=== PATIENT | male | born 2000 | race Two or more races ===

== ENCOUNTER 2023-10-02 09:40 | Inpatient (IN) | payer MEDICAID ==
[~2023-10-02] VITALS: Ht 165.1 cm; Wt 110.5 kg
[2023-10-02] VITALS (7 sets, daily range): BP systolic 115–122; BP diastolic 60–68; PULSE 75–96; RESP 16–22; TEMP 100.3–100.6; O2SAT 92–100
[2023-10-02 10:34] LABS: Basophils # (auto) 0 10 ^3/uL (0-0.2); Basophils % (auto) 0.3 % (0.0-2.0); Eosinophils # (auto) 0 10 ^3/uL (0-0.8); Eosinophils % (auto) 0.1 % (0.0-7.0); Hematocrit 43.8 % (41.0-53.0); Hemoglobin 14.4 g/dL (13.5-17.5); Lymphocytes % (auto) 14.3 % (10.0-50.0); Mean Corpuscular Hemoglobin 28.2 pg (28.0-32.0); Mean Corpuscular Hgb Conc. 32.9 g/dL (32.0-36.0); Mean Corpuscular Volume 85.7 fL (80.0-100.0); Monocytes # (auto) 1.2 10 ^3/uL (0-1.3); Monocytes % (auto) 8.5 % (0.0-12.0); Neutrophils # (auto) 10.8 10 ^3/uL (1.6-8.6); Neutrophils % (auto) 76.8 % (37.0-80.0); Nucleated Red Blood Cells % 0.1 %; Red Blood Cells 5.11 10^6/uL (4.5-5.90); Red Cell Distribution Width 13.8 % (11.8-14.3); White Blood Cell 14.1 10^3/uL (4.4-10.8)
[2023-10-02 10:44] LABS: Chloride 106 mmol/L (98-107); Sodium 136 mmol/L (136-145)
[2023-10-02 10:45] LABS: Anion Gap 6 (5-15); Carbon Dioxide 24 mmol/L (20-30)
[2023-10-02 10:46] LABS: Calcium 9.4 mg/dL (8.5-10.1)
[2023-10-02 10:50] LABS: BUN/Creatinine Ratio 17.7 (10.0-20.0); Blood Urea Nitrogen 14 mg/dL (9-23); Glucose 97 mg/dL (74-106)
[2023-10-02 10:56] LABS: INR 1.08 (0.9-1.15); Partial Thromboplastin Time 32.6 SEC (24.5-34.5); Prothrombin Time 11.3 sec (9.3-11.8)
[2023-10-02] MEDS ORDERED: VANCOMYCIN PER PHARMACY 0 MG IV SCH (11:15)
[2023-10-02] MEDS: MORPHINE SULFATE 4 MG/ML SYR/VIAL IV ONE (11:34)
[2023-10-02] MEDS: PANTOPRAZOLE 40 MG/10 ML VIAL INJ IV ONE (11:34)
[2023-10-02] MEDS: PIPERACILLIN-TAZOB 3.375GM 100 ML IV ONE (11:34)
[2023-10-02] MEDS: ONDANSETRON HCL 4 MG/2 ML VIAL IV ONE (11:35)
[2023-10-02] MEDS: SODIUM CHLORIDE 0.9% 1,000 ML IVB ONE (11:35)
[2023-10-02] MEDS ORDERED: fentaNYL CITRATE 100 MCG/2 ML VL ONE (12:00)
[2023-10-02] MEDS ORDERED: MIDAZOLAM HCL 2MG/2ML 2ml VIAL (1mg/ml) ONE (12:00)
[2023-10-02] MEDS: LIDOCAINE W/ EPINEPHRINE 1% 20ML VIAL ONE (12:21)
[2023-10-02] MEDS: BUPIVACAINE HCL 0.25% P/F 10 ML VIAL ONE (12:21)
[2023-10-02] MEDS ORDERED: ONDANSETRON HCL 4 MG/2 ML VIAL ONE (12:50)
[2023-10-02] MEDS ORDERED: PROPOFOL 10 MG/ML 20 ML IV ONE (12:50)
[2023-10-02] MEDS ORDERED: LIDOCAINE 1% INJ PF 5ML AMP ONE (12:50)
[2023-10-02] MEDS ORDERED: ROCURONIUM 10MG/ML 10ML VIAL IV ONE (12:50)
[2023-10-02] MEDS ORDERED: NEOSTIGMINE 1 MG/ML INJ (10mg/10ML VIAL) ONE (12:55)
[2023-10-02] MEDS ORDERED: GLYCOPYRROLATE 0.2 MG/ML 1ML VIAL ONE (12:55)
[2023-10-02] MEDS ORDERED: ONDANSETRON HCL 4 MG/2 ML VIAL IV PRN (13:30)
[2023-10-02] MEDS: HYDROmorphone HCL 2 MG/ML VL/or syr IV PRN (14:29)
[2023-10-02] MEDS: ACETAMINOPHEN 325 MG TAB PO PRN (15:37)
[2023-10-02] MEDS: ceFAZolin 1GM/50ML 50 ML IV SCH (15:56)
[2023-10-02] MEDS: metroNIDAZOLE 500MG/100ML 100 ML IV SCH (15:56)
[2023-10-02] MEDS: SODIUM CHLORIDE 0.9% 1,000 ML IV SCH (16:00)
[2023-10-02] MEDS ORDERED: PIPERACILLIN-TAZOB 3.375GM 100 ML IV SCH (18:00)
[2023-10-02] MEDS: MORPHINE SULFATE INJ 2 MG/ml SYRG IV PRN (18:21)
[2023-10-02] MEDS: SUCCINYLCHOLINE CHLORIDE 20 MG/ML 10ML VIAL IV ONE (21:43)
[2023-10-02] MEDS: VANCOMYCIN 1GM/200ML 200 ML IV ONE ×2 (21:43→23:56)
[2023-10-03 05:01] VITALS: BP 109/65; PULSE 70; RESP 19; TEMP 98.1; O2SAT 100
[2023-10-03 06:04] LABS: Basophils # (auto) 0 10 ^3/uL (0-0.2); Basophils % (auto) 0.3 % (0.0-2.0); Eosinophils # (auto) 0 10 ^3/uL (0-0.8); Eosinophils % (auto) 0.1 % (0.0-7.0); Hematocrit 39.3 % (41.0-53.0); Hemoglobin 13.2 g/dL (13.5-17.5); Lymphocytes # (auto) 1.3 10 ^3/uL (0.4-5.4); Lymphocytes % (auto) 12.5 % (10.0-50.0); Mean Corpuscular Hemoglobin 28.9 pg (28.0-32.0); Mean Corpuscular Hgb Conc. 33.6 g/dL (32.0-36.0); Monocytes # (auto) 0.7 10 ^3/uL (0-1.3); Monocytes % (auto) 6.8 % (0.0-12.0); Neutrophils # (auto) 8.5 10 ^3/uL (1.6-8.6); Neutrophils % (auto) 80.3 % (37.0-80.0); Red Blood Cells 4.57 10^6/uL (4.5-5.90); Red Cell Distribution Width 13.7 % (11.8-14.3); White Blood Cell 10.5 10^3/uL (4.4-10.8)
[2023-10-03 06:24] LABS: Alanine Aminotransferase 26 U/L (7-40); Albumin 4.2 g/dL (3.2-4.8); Alkaline Phosphatase 44 U/L (46-116); Anion Gap 6 (5-15); Aspartate Aminotransferase 27 U/L (13-40); BUN/Creatinine Ratio 15.3 (10.0-20.0); Bilirubin, Total 1.5 mg/dL (0.2-1.0); Blood Urea Nitrogen 11 mg/dL (9-23); Calcium 9.1 mg/dL (8.5-10.1); Carbon Dioxide 23 mmol/L (20-30); Chloride 105 mmol/L (98-107); Glucose 102 mg/dL (74-106); Sodium 134 mmol/L (136-145); Total Protein 6.7 g/dL (5.7-8.2)
[2023-10-03 08:00] VITALS: BP 114/65; PULSE 72; RESP 16; TEMP 98.6; O2SAT 94
[2023-10-03] MEDS: PANTOPRAZOLE 40 MG/10 ML VIAL INJ IV SCH (09:52)
[2023-10-03 12:00] VITALS: BP 135/87; PULSE 99; RESP 16; TEMP 97.7; O2SAT 93
[2023-10-03 16:00] VITALS: BP 116/59; PULSE 96; RESP 16; TEMP 98.1; O2SAT 96
[2023-10-03] MEDS: VANCOMYCIN 1GM/200ML 200 ML IV SCH (16:47)
[2023-10-03 20:00] VITALS: PULSE 86; RESP 17; O2SAT 94
[2023-10-03 22:00] VITALS: BP 124/71; PULSE 86; RESP 17; TEMP 98.2; O2SAT 94
[2023-10-04] MEDS: DOCUSATE SOD 100 MG CAP PO PRN (03:57)
[2023-10-04 05:00] VITALS: BP 139/71; PULSE 80; RESP 20; TEMP 97.4; O2SAT 94
[2023-10-04 09:00] VITALS: BP 124/77; PULSE 85; RESP 18; TEMP 98.3; O2SAT 96
[2023-10-04] MEDS: ONDANSETRON HCL 4 MG/2 ML VIAL IV PRN (11:23)
[2023-10-04 12:30] VITALS: BP 158/104; PULSE 60; RESP 18; TEMP 98.3; O2SAT 100
[2023-10-04 16:27] VITALS: BP 139/77; PULSE 77; RESP 17; TEMP 98.6; O2SAT 97
[2023-10-04 19:30] VITALS: RESP 17
[2023-10-04 22:00] VITALS: BP 119/81; PULSE 76; RESP 20; TEMP 98.4; O2SAT 99
[2023-10-04] MEDS: VANCOMYCIN 750mg/150ml 150 ML IV SCH (23:54)
[2023-10-05 05:00] VITALS: BP 115/70; PULSE 68; RESP 20; TEMP 98.3; O2SAT 96
[2023-10-05 08:30] VITALS: BP 120/76; PULSE 64; RESP 20; TEMP 97.7; O2SAT 97
[2023-10-05] MEDS ORDERED: ZOFR4T PO (11:22)
[2023-10-05] MEDS ORDERED: HYDR-4902 PO (11:22)
[2023-10-05] MEDS ORDERED: CIPR500T4 PO (11:22)
[2023-10-05] MEDS ORDERED: DOCU-94 PO (11:22)
[2023-10-05] MEDS ORDERED: METR-344 PO (11:22)
== END 2023-10-05 17:32 | disposition home or self-care (01) | DRG 710 ==
LOC: ER 09:40 → OVERFLOW 11:09 → WEST WING 15:28
PROVIDERS: ADMIT Nurse Practitioner Family; ATTEND Internal Medicine
PROC: 0DTJ4ZZ Resection of Appendix, Percutaneous Endoscopic Approach (ICD-10-PCS; principal; 2023-10-02 12:02)
DX: A41.9 Sepsis, unspecified organism (principal); K35.32 Acute appendicitis with perforation, localized peritonitis, and gangrene, without abscess; K76.0 Fatty (change of) liver, not elsewhere classified; R16.0 Hepatomegaly, not elsewhere classified; F17.210 Nicotine dependence, cigarettes, uncomplicated
CPT/HCPCS: 36415; 74176; 80048; 80053; 80202; 82565; 85025; 85610; 85730; 86850; 86900; 86901; 87070; 87075; 87077; 87186; 87205; 96365; 96375; C9113; G0378; J0330; J2250; J2405; J2543; J2704; J3490